=== PATIENT | female | born 2000 | race Caucasian/White ===

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

== ENCOUNTER 2018-01-28 11:38 | Emergency (ER) | payer BC ==
[~2018-01-28] VITALS: Ht 172.7 cm; Wt 65.0 kg
[~2018-01-28 11:38] MED LIST: TRAM-10 PO
[2018-01-28 11:45] VITALS: TEMP 36.9; Ht 172.7 cm; Wt 65.0 kg
[2018-01-28] MEDS ORDERED: BCPILLS PO (12:16)
[2018-01-28 12:41] LABS: ISTAT CREATININE 0.9 mg/dl; ISTAT IONIZED CALCIUM 1.24 mmol/l; ISTAT POTASSIUM 3.9 mEq/L (3.3-5.0)
[2018-01-28] MEDS ORDERED: OPTIRAY 320 IV PRN (13:00)
--- NOTE | 2018-01-28 13:11 | DIAGNOSTIC IMAGING REPORT ---
FACIAL-MAXILLOFACIAL WITH CLINICAL HISTORY: 17 years-old Female presenting with R upper incisor pain with lump under lip; ? Abscess, pain under nose for a few days, tingling sensation in the right face, history of sinus infections. TECHNIQUE: Multidetector CT of the face was performed after the administration of intravenous contrast. IV contrast: 92 mL of Optiray 320. A dose lowering technique was used consistent with the principles of ALARA (as low as reasonably achievable). COMPARISON: None. CT DOSE (mGy.cm): The estimated cumulative dose is 683.16 mGy.cm. FINDINGS: Shed Boss topogram: Unremarkable. Amalgam somewhat limits evaluation of the oral cavity including the site of clinical interest. Allowing for this hyperenhancement of buccal mucosa diffusely. No evidence of an abscess. No superficial subcutaneous inflammatory change. Periapical lucency at the right central maxillary incisor (series 4 image 229). Suggestion of slight cortical right through along the buccal aspect of the right paracentral maxilla (series 4 image 227). No well-defined abscess superficial to this region. No other periapical lucencies identified in the maxillary or mandibular teeth. Unerupted third maxillary and mandibular molars. Paranasal sinuses demonstrate minimal polypoid mucosal thickening in the left maxillary sinus. Mastoid air cells and middle ears clear. Limited intracranial evaluation within normal limits. Orbits normal. Vessels patent. IMPRESSION: 1. Periapical lucency at the right central maxillary incisor, which could suggest periapical abscess, especially given the associated cortical breakthrough along the buccal mucosa at the site. No associated odontogenic abscess. Electronically signed by: Lito Reis M.D. 01/28/2018 1:09 PM Dictated Date/Time: 01/28/2018 1:04 PM
[2018-01-28] MEDS ORDERED: PENI500T2 PO (13:35)
[2018-01-28 13:42] VITALS: BP 120/80; PULSE 83; O2SAT 100
--- NOTE | 2018-01-29 12:53 | EMERGENCY ROOM VISIT NOTE ---
ED Visit Note First contact with patient: 11:56 Chief Complaint: Tooth pain, facial numbness and swelling under my upper lip. History of Present Illness: Ms. Romero is a 17-year-old white female who ambulates into the ED complaining of right maxillary incisor pain, facial numbness and swelling under her upper lip. Historically patient reports since the beginning of the semester in October she has been having upper respiratory tract symptoms. She was first diagnosed with influenza and finished a course of Tamiflu. Over the last 30 days she reports she has been diagnosed with a sinus infection and has been on 3 different antibiotics until her symptoms were relieved approximately 1 month ago. At that time she was seen by ENT and felt to be free of her sinus infection. Patient reports 2 she noted that her right maxillary incisor; tooth #8, was painful to palpation and biting. Then she developed a tingling/numbness sensation just later to the right Ala of the nose. Then she noted to logan that she developed a lump on the inside of her upper lip just superior to the right maxillary incisor. Associated with her symptoms she reports she has a pressure sensation in the area. She rates this discomfort 4/10. The pain is nonradiating. Pain worsens with palpation of the tooth and her lump. She has not identified any alleviating factors related to the pain. She has not taken medication for pain prior to arrival at the hospital. She denies any associated symptoms including fevers, chills, sweats, skin eruptions, skin color changes, difficulty breathing through her nose, throat pain, decreased appetite, nausea, vomiting, recent facial trauma. Review of Systems: As noted above in history of present illness. 8 body systems were reviewed and found to be negative as noted above. Past Medical History: Patient denies. Current Medications: Patient denies. Allergies to Medications: Patient denies. Social History: Patient is a university student; she feels safe in her home environment; she denies tobacco and alcohol use. Physical Examination: Vital Signs: Date Time Temp Pulse Resp B/P (MAP) Pulse Ox O2 Delivery O2 Flow Rate FiO2 01/28/18 13:42 83 18 120/80 100 Room Air 01/28/18 11:45 36.9 94 16 125/86 99 Room Air GENERAL: 17-year-old female in mild due to pain, nontoxic-appearing, afebrile and hemodynamically stable. NEUROLOGICAL: Awake, alert and oriented to person, place and time. Answering questions appropriately and following commands. Normal gait. Good hand eye coordination. No focal motor sensory deficits. SKIN: Warm, dry and pink. No soft tissue eruptions or trauma noted. HEENT: Atraumatic and normocephalic. PERRL. Sclera white and conjunctiva pink. No drainage from naris. Oral cavity moist and pink. Pharynx is nonerythematous or edematous. Speech normal. No lymphadenopathy. Trachea midline. No jugular venous distention. BACK: No tenderness over the bony spine. No CVA tenderness. THORAX: Lungs sounds are clear to auscultation and equal bilaterally with symmetrical chest wall. No wheezing, rales or rhonchi. No crepitus, tenderness , subcutaneous air or deformities noted. HEART: Regular rate and rhythm. No gallops, rubs or murmurs are appreciated. ABDOMEN: Flat, soft and nontender. Positive bowel sounds in all quadrants. No guarding, rigidity or organomegaly. EXTREMITIES: Moves all extremities well on command and with purpose. All distal neurovascular statuses are intact and equal bilaterally. No calf tenderness or cords. ED Course: Patient is assessed as noted above. Patient's medication list was reviewed. Patient was offered pain medication and refused. Laboratory Testing: Test 01/28/18 12:21 Range/Units Bedside Hemoglobin 13.6 12.0-16.0 g/dl Bedside Hematocrit 40 37-47 % Bedside Sodium 141 135-144 mEq/L Bedside Potassium 3.9 3.3-5.0 mEq/L Bedside Chloride 104 101-112 mEq/L Bedside Total CO2 27 24-31 mEq/l Anion Gap 16.0 16-25 mmol/L Bedside Blood Urea Nitrogen 8 7-18 mg/dl Bedside Creatinine 0.9 mg/dl Bedside Glucose (other) 102 70-99 mg/dl Bedside Ionized Calcium (Micky) 1.24 mmol/l Urine : Negative. Facial CT with Contrast: Was reviewed by myself and read by the radiologist and shows a periapical lucency at the right central maxillary incisor suggestive of a periapical abscess. Patient was educated about today's findings and instructed on her treatment plan ; she verbalized understanding and agreement with this plan. Clinical Impression: Periapical abscess. Disposition: Patient discharged home in stable condition; prior to departure she was reassessed and subjectively reported she was pain-free. Plan: Patient was encouraged alternate ibuprofen and acetaminophen as needed for pain. Patient was prescribed Pen-Vee K 500 mg 4 times a day for 10 days. Patient is a local college student and not from the area. I did suggest that she contact her family dentist at home for follow-up care and treatment and if they felt this was more emergent to contact [facility] for possible referral to local dentist. Patient was encouraged return the ED for worsening/uncontrolled pain, increasing swelling, increasing facial numbness, fevers or any new/concerning symptoms.
== END 2018-01-28 13:42 | disposition home or self-care (01) ==
LOC: C.EDB 11:41 → C.EDD 13:42
DX: K04.7 Periapical abscess without sinus (principal)